=== PATIENT | male | born 1950 | race Caucasian/White ===

== ENCOUNTER 2020-05-02 04:25 | Emergency (ER) | payer OTHER ==
[2020-05-02] MEDS ORDERED: Albuterol 200 PUFF (6.7GM INHALER) ONE (05:20)
== END 2020-05-02 06:11 | disposition home or self-care (01) ==
LOC: ERS 04:25
DX: J98.01 Acute bronchospasm (principal); F32.9 Major depressive disorder, single episode, unspecified; F17.210 Nicotine dependence, cigarettes, uncomplicated
CPT/HCPCS: 99284